=== PATIENT | female | born 1975 | race Caucasian/White ===

== ENCOUNTER 2018-04-19 13:29 | Emergency (ER) | payer MEDICARE ==
[2018-04-19 14:04] LABS: #Basophils 0.1 thou/uL (0.0-0.2); #Eosinphils 0.2 thou/uL (0.0-0.7); #Monocytes 0.4 thou/uL (0.11-0.59); #Neutrophils 4.1 thou/uL (1.40-6.50); %Basophils 1.1 % (0.0-1.0); %Eosinophils 2.4 % (0.0-10.0); %Lymphocytes 30.1 % (21.0-51.0); %Monocytes 5.5 % (0.0-10.0); Hemoglobin 12.6 g/dL (12.0-16.0); Mean Corpuscular HGB CONC 34.5 g/dL (32.0-36.0); Mean Corpuscular Hemoglobin 29.6 pg (27.0-31.0); Mean Corpuscular Volume 85.8 fL (78.0-98.0); Mean Platelet Volume 6.9 fL (7.4-10.4); Platelet Count 282 thou/uL (130-400); RBC Distribution Width 11.6 % (11.5-14.5); Red Blood Cell (RBC) Count 4.27 mill/uL (4.20-5.40); White Blood Cell (WBC) Count 6.8 thou/uL (4.8-10.8)
[2018-04-19 14:24] LABS: ALT (SGPT) 11 U/L (8-55); AST (SGOT) 12 U/L (5-34); Albumin 4.2 g/dL (3.5-5.0); Alkaline Phosphatase 76 U/L (40-150); Anion Gap 12 mmol/L (10-20); BUN (Urea Nitrogen) 18 mg/dL (7.0-18.7); Bilirubin, Total 0.5 mg/dL (0.2-1.2); Calc. Creatinine Clearance 0 mL/min (70-130); Calcium 9.7 mg/dL (7.8-10.44); Carbon Dioxide 24 mmol/L (22-29); Chloride 106 mmol/L (98-107); Estimated GFR-MDRD 80; Globulin 2.8 g/dL (2.4-3.5); Glucose 144 mg/dL (70-105); Potassium 3.9 mmol/L (3.5-5.1); Sodium 138 mmol/L (136-145)
--- NOTE | 2018-04-19 14:34 | RAD ---
RIGHT FOOT 2 VIEWS: HISTORY: Diabetic wound. Evaluate for osteomyelitis. COMPARISON: None. FINDINGS: There is mild bone demineralization. There appears to be soft tissue swelling at the level of the 5t h MTP joint. There appears to be ulceration along the lateral aspect of the foot. No radiographic e vidence of osteomyelitis. Lisfranc alignment is maintained and the joint space is preserved. IMPRESSION: Soft tissue swelling and ulceration along the lateral aspect of the right foot at the 5th MTP joint s pace. No radiographic evidence of osteomyelitis. POS: [facility]
[2018-04-19 15:50] LABS: Bilirubin Negative (Negative); Blood, Urine Negative (Negative); Clarity CLEAR (Clear); Glucose, Urine (Dipstick) Negative (Negative); Leukocyte Large (Negative); Nitrite Negative (Negative); Protein, Urine (Dipstick) Negative (Neg-Trace); Specific Gravity, Urine 1.005 (1.002-1.036); Urobilinogen 0.2 mg/dL (0.2-1.0)
[2018-04-19 15:52] LABS: Bacteria/HPF None Seen HPF (None Seen); Hyaline Casts/LPF 0-3 HYALINE CAST LPF (0-3 Hyaline); Pathc Cast-AUWi Flag 0.29 (0-2.49); RBC/HPF 0-3 HPF (0-3); Squamous Epithelial 0-3 HPF (0-3)
[2018-04-19] MEDS ORDERED: cefTRIAXone\\ROCEPHIN 1 GM VIAL ONE (16:34)
== END 2018-04-19 18:50 | disposition home or self-care (01) ==
LOC: ERS 13:29
DX: L03.115 Cellulitis of right lower limb (principal); E11.9 Type 2 diabetes mellitus without complications; Z87.891 Personal history of nicotine dependence
CPT/HCPCS: 36415; 80053; 81003; 81015; 85025; 85652; 86140; 96365; 96367; J0696; J3370

== ENCOUNTER 2018-04-21 12:48 | Emergency (ER) | payer MEDICARE | END 2018-04-21 13:30 | disposition home or self-care (01) | LOC: ERS 12:48 | DX: E11.621 Type 2 diabetes mellitus with foot ulcer (principal); L97.519 Non-pressure chronic ulcer of other part of right foot with unspecified severity; Z87.891 Personal history of nicotine dependence; Z79.891 Long term (current) use of opiate analgesic; Z79.899 Other long term (current) drug therapy | CPT/HCPCS: 99282 ==

== ENCOUNTER 2018-09-11 09:06 | Emergency (ER) | payer MEDICARE, OTHER ==
[2018-09-11 10:39] LABS: HBSAB Concentration 0.55 mIU/mL; HIV (1/2) Antibody/Antigen Non-Reactive (NonReactive); HIV 1/2 INDEX 0.07 S/CO (<1.00); Hep B Surf AB Non-Reactive (NonReactive)
[2018-09-11 10:47] LABS: Hep C IgG Ab Reflex HepC Qnt (NonReactive); Hep C Index 13.26 S/CO (0-0.79)
[2018-09-13 23:10] LABS: Hep C PCR-Quant HCV Not Detected IU/mL (.)
== END 2018-09-11 09:48 | disposition home or self-care (01) ==
LOC: ERS 09:06
DX: S61.231A Puncture wound without foreign body of left index finger without damage to nail, initial encounter (principal); Z77.21 Contact with and (suspected) exposure to potentially hazardous body fluids; W26.8XXA Contact with other sharp object(s), not elsewhere classified, initial encounter
CPT/HCPCS: 86706; 86803; 87389; 87522; 99283